=== PATIENT | female | born 1960 | race Caucasian/White ===

== ENCOUNTER 2024-02-25 09:37 | Outpatient (CLI) | payer MEDICAID ==
[~2024-02-25 09:37] MED LIST: ASPI81TA52 PO; BEMP180T PO; BUPR-561 PO; CHOL20003 PO; ERGO500093 PO; LOSA25TA41 PO; METF-1203 PO; METO25TA6 PO
== END 2024-02-25 23:59 | disposition home or self-care (01) ==
LOC: MRI 09:37
PROVIDERS: ATTEND Registered Nurse
DX: M19.012 Primary osteoarthritis, left shoulder (principal); M89.312 Hypertrophy of bone, left shoulder; M25.812 Other specified joint disorders, left shoulder; M25.712 Osteophyte, left shoulder; M25.512 Pain in left shoulder
CPT/HCPCS: 73221

== ENCOUNTER 2024-05-08 11:19 | Outpatient (CLI) | payer MEDICAID | END 2024-05-08 23:59 | disposition home or self-care (01) | LOC: RAD 11:19 | PROVIDERS: ATTEND Internal Medicine Critical Care Medicine | DX: Z12.2 Encounter for screening for malignant neoplasm of respiratory organs (principal); J44.9 Chronic obstructive pulmonary disease, unspecified; Z87.891 Personal history of nicotine dependence; M47.814 Spondylosis without myelopathy or radiculopathy, thoracic region; K76.0 Fatty (change of) liver, not elsewhere classified; I25.10 Atherosclerotic heart disease of native coronary artery without angina pectoris; J98.11 Atelectasis | CPT/HCPCS: 71271 ==

== ENCOUNTER 2025-01-09 10:04 | Outpatient (CLI) | payer MEDICAID ==
[~2025-01-09] VITALS: Ht 160 cm; Wt 100.7 kg
[~2025-01-09 10:04] MED LIST changes: -BUPR-561 PO; +BUPR-726 PO
[2025-01-09] MEDS: albuterol 2.5 MG/3 ML nebule NEB ONE (10:51)
[2025-01-09 10:53] VITALS: PULSE 62; RESP 16; O2SAT 93
[2025-01-09 11:04] VITALS: PULSE 66; RESP 16
--- NOTE | 2025-01-10 14:59 | PROCEDURE NOTE - Respiratory ---
Procedure Note-Respiratory Providers to CC Copies To 1: SOLITARIO FLOWER DO Procedure Name: This is a spirometry study dated January 09, 2025. The spirometry study was performed both before and after inhaled bronchodilator. Spirometry measurements: There is significant reduction in both the forced vital capacity and the FEV1. The FEV1 ratio is reduced as well. All of the measured flow rates show significant reduction. After inhaled bronchodilator there is small but significant improvement in some of the flow rate measurements. Conclusion: This study is abnormal. There is evidence for moderate to severe obstructive ventilatory defect. This is consistent with the patient's diagnosis of smoking-related COPD. The patient improves slightly with inhaled bronchodilator. Continued use of inhaled bronchodilator is recommended. We have no previous studies for comparison. Close pulmonary follow-up is recommended. PETER CHRISTENSEN MD Jan 10, 2025 14:59
== END 2025-01-09 23:59 | disposition home or self-care (01) ==
LOC: RT 10:04
PROVIDERS: ATTEND Family Medicine
DX: J44.9 Chronic obstructive pulmonary disease, unspecified (principal); G47.30 Sleep apnea, unspecified; R06.09 Other forms of dyspnea
CPT/HCPCS: 94060; 94760; A6258; A6449

== ENCOUNTER 2025-06-11 11:34 | Outpatient (CLI) | payer MEDICAID ==
--- NOTE | 2025-06-11 14:38 | RADIOLOGY REPORT ---
CT Chest without intravenous contrast INDICATION: OTHER SPECIFIED PLEURAL CONDITIONS TECHNIQUE: Multidetector spiral CT of the chest was performed from the lung apices to the upper abdomen. Axial, coronal and sagittal multiplanar reformats were performed. Radiation Dose : 1. Chest: CTDI volume is 18.7 mGy. Dose-length product is 645.6 mGy*cm The dose indicators for CT are the volume Computed Tomography (CT) Dose Index (CTDIvol) and the Dose Length Product (DLP), and are measured in units of mGy and mGy-cm, respectively. These indicators are not patient dose, but values generated from the CT scanner acquisition factors. The report includes radiation exposure data for exposures received during this examination. Comparison: CT CT CHEST LOW DOSE on DOS: 05/08/24 Findings: Lower neck: Normal thyroid. Lungs: No focal consolidation. Dependent subsegmental atelectasis. Heart/Vascular Structures: Normal heart size. No pericardial effusion. Lymph Nodes: No adenopathy Pleura: No pleural effusion or significant pneumothorax. Musculoskeletal: No acute osseous abnormality. Degenerative changes of the spine. Soft tissues: Normal. Upper abdomen: Hepatic steatosis. Hepatomegaly. IMPRESSION: No acute or suspicious thoracic finding. Radiation optimization: All CT scans at this facility use at least one of these dose optimization techniques: automated exposure control mA and/or kV adjustment per patient size (includes targeted exams where dose is matched to clinical indication) or iterative reconstruction.
== END 2025-06-11 23:59 | disposition home or self-care (01) ==
LOC: RAD 11:34
PROVIDERS: ATTEND Internal Medicine Critical Care Medicine
DX: K76.0 Fatty (change of) liver, not elsewhere classified (principal); J94.8 Other specified pleural conditions; J98.11 Atelectasis; M47.814 Spondylosis without myelopathy or radiculopathy, thoracic region; R16.0 Hepatomegaly, not elsewhere classified
CPT/HCPCS: 71250